=== PATIENT | male | born 1965 | race Caucasian/White ===

== ENCOUNTER → 2016-10-06 | Outpatient (CLI) | payer OTHER ==
[~2016-10-06] MED LIST: AMANTADINE100 MG PO; CLONAZEPAM0.5 MG PO; DEPAKOTE500 MG PO; HYDROCODON-ACE1 EAC7 PO; LEVETIRACETAM1000 MG PO; MOTRIN600 MG PO; MOTRIN800 MG PO; SEROQUEL100 MG PO; TYLENOL REGULA325 MG PO; VIMPAT100 MG PO; ZOFRAN4 MG PO
== END ==
LOC: RAD 08:00
DX: S42.302D Unspecified fracture of shaft of humerus, left arm, subsequent encounter for fracture with routine healing (principal); W06.XXXD Fall from bed, subsequent encounter
CPT/HCPCS: 73200

== ENCOUNTER 2017-02-01 20:33 | Emergency (ER) | payer OTHER ==
[~2017-02-01] VITALS: Ht 175.3 cm; Wt 73.7 kg
[2017-02-01 21:13] LABS: EOSINOPHIL (%) 0.5 % (0-5); HEMATOCRIT 45.3 % (38.0-50.0); IMMATURE GRANULOCYTE (%) 0.3 % (0.0-0.7); INSTRUMENT ABS NEUTROPHIL CT 3.4 K/uL; MCH 31.3 PG (29.0-34.0); MCHC 33.6 G/DL (30.0-36.0); MCV 93.4 FL (86-99); MEAN PLAT.VOLUME 9.4 uM^3 (9.0-12.4); MONOCYTE (%) 6.1 % (3-12); MONOCYTE COUNT 0.5 K/uL (0-0.8); NEUTROPHIL (%) 42.2 % (45-76); NEUTROPHIL COUNT 3.4 K/uL (1.8-6.4); PLATELET COUNT 210 K/uL (156-360); RBC DIS.WIDTH-SD 44.4 % (39-53); RED BLOOD COUNT 4.85 M/uL (4.00-5.50)
[2017-02-01 21:24] LABS: CHLORIDE 105 mEq/L (99-109); POTASSIUM 4.5 mEq/L (3.7-5.4); SODIUM 143 mEq/L (136-147)
[2017-02-01 21:26] LABS: GLUCOSE 85 mg/dL (70-99)
[2017-02-01 21:27] LABS: ANION GAP 12 MEQ/L (2-14)
[2017-02-01 21:30] LABS: D-DIMER ELISA 0.21 mg/L FEU (< 0.57); GFR ESTIMATE (CALCULATED) > 59 mL/min/; INTER. NORMALIZED RATIO 1.1; PROTHROMBIN TIME 10.7 (9.2-11.2); PTT 27.9 (25-32)
[2017-02-01 21:31] LABS: UREA NITROGEN (BUN) 6 mg/dL (9-23)
[2017-02-01 21:33] LABS: TROP-I INTERPRETATION NEGATIVE; TROPONIN-I < 0.01 ng/mL (0.0-0.30)
[2017-02-01 23:11] LABS: TROP-I INTERPRETATION NEGATIVE; TROPONIN-I < 0.01 ng/mL (0.0-0.30)
[2017-02-01 23:43] VITALS: BP 105/73
[2017-02-01] MEDS ORDERED: VITAMIN D-32000 UNI2 PO (23:47)
[2017-02-01] MEDS ORDERED: ROPINIROLE HC0.25 MG PO (23:47)
[2017-02-01] MEDS ORDERED: COLACE100 MG PO (23:48)
[2017-02-01] MEDS ORDERED: MELOXICAM7.5 MG PO (23:48)
[2017-02-01] MEDS ORDERED: PREDNISONE5 MG PO (23:49)
[2017-02-01] MEDS ORDERED: PREDNISONE2.5 MG PO (23:49)
[2017-02-01] MEDS ORDERED: DEPAKOTE500 MG PO (23:50)
[2017-02-01] MEDS ORDERED: DESYREL100 MG PO (23:50)
[2017-02-01] MEDS ORDERED: LORAZEPAM1 MG PO (23:51)
[2017-02-01] MEDS ORDERED: TYLENOL REGULA325 MG PO (23:52)
[2017-02-01] MEDS ORDERED: OXAYDO5 MG PO (23:52)
[2017-02-01] MEDS ORDERED: TRAMADOL HCL50 MG PO (23:53)
== END 2017-02-02 00:39 ==
LOC: EME → EDBD 20:33 → EME 20:33
PROVIDERS: Emergency Medicine
DX: R07.9 Chest pain, unspecified (principal); Z87.891 Personal history of nicotine dependence
CPT/HCPCS: 71010; 80048; 84484; 85025; 85379; 85610; 85730; 93005; 99281; 99285